=== PATIENT | male | born 1945 | race Caucasian/White ===

== ENCOUNTER 2023-04-10 08:30 | Outpatient (CLI) | payer OTHER | END 2023-04-10 08:31 | disposition critical access hospital (66) | LOC: EMS 08:30 | DX: S81.812A Laceration without foreign body, left lower leg, initial encounter (principal); M25.562 Pain in left knee; W01.0XXA Fall on same level from slipping, tripping and stumbling without subsequent striking against object, initial encounter; Y93.01 Activity, walking, marching and hiking ==

== ENCOUNTER 2023-04-10 09:12 | Emergency (ER) | payer SELFPAY ==
--- NOTE | 2023-04-10 10:54 | XRAY Report ---
PROCEDURE: Knee 4 View LT INDICATIONS: fall laterl pain TECHNIQUE: 4 views of the left knee(s) were acquired. COMPARISON: None. FINDINGS: Bones: There is a mildly displaced oblique fracture of the proximal tibia extending to the lateral ti bial plateau. Soft tissues: No knee joint effusion. No suspicious soft tissue calcifications or masses. IMPRESSION: Proximal tibial fracture. Reviewed by: Mauricio Haynes MD on 04/10/2023 10:52 AM PDT Approved by: Mauricio Haynes MD on 04/10/2023 10:52 AM PDT Station ID: [id number]
--- NOTE | 2023-04-10 10:54 | XRAY Report ---
PROCEDURE: Tib/Fib LT INDICATIONS: fall proximal pain distal swelling TECHNIQUE: 2 views of the tibia and fibula were acquired. COMPARISON: None. FINDINGS: Bones: Mildly displaced fracture of the proximal tibia extending to the lateral tibial plateau is pr esent. No suspicious bony lesions. Soft tissues: No suspicious soft tissue calcifications or masses. IMPRESSION: Proximal tibial fracture. Reviewed by: Mauricio Haynes MD on 04/10/2023 10:53 AM PDT Approved by: Muaricio Haynes MD on 04/10/2023 10:53 AM PDT Station ID: [id number]
--- NOTE | 2023-04-10 11:58 | ED Physician Documentation ---
PD HPI LOWER EXT INJURY - Stated complaint Stated Complaint: LEG PX/FALL - Chief complaint Chief Complaint: Ext Problem - History obtained from History obtained from: Patient - History of Present Illness PD HPI LOW EXT INJURY LOCATION: Left, Knee, Lower leg Type of injury: Fall Where injury occurred: [place] Timing - onset: How many days ago (2) Timing - duration: Days (2) Timing - details: Abrupt onset, Still present Improved by: Rest, Immobilization Worsened by: Moving, Palpating Associated symptoms: No: Weakness, Numbness, Tingling, Swelling Contributing factors: No: Anticoagulated Similar symptoms before: Has not had sx before Recently seen: Not recently seen - Additional information Additional information: Previously well Jann Finney is a 77-year-old male who takes tamsulosin. 2 [place] felt forward and landed hard on his left foot. He struck his face may have had a momentary loss of consciousness. He states that he felt the jarring motion of the fall with significant but he did not feel that he was otherwise injured. He has a black and blue eye and denies any injury to his chest abdomen pelvis or extremities with the exception of the left lower extremity. He denies any nausea or vomiting denies difficulty concentrating or lightheadedness and dizziness.The patient states that when this fall occurred 2 days ago he was [place] the [place] and a passerby stayed with him for about half an hour until he was able to get into his car to drive home. He states that when he got to his home he had to crawl back into his house. He has been using a wheelchair in his home for ambulation and he has a friend who is a next-door neighbor who is assisting him. Review of Systems Constitutional: denies: Fever Eyes: denies: Loss of vision, Decreased vision, Photophobia, Discharge, Irritation Ears: denies: Ear pain Nose: denies: Rhinorrhea / runny nose, Congestion Throat: denies: Sore throat Cardiac: denies: Chest pain / pressure, Palpitations Respiratory: denies: Dyspnea, Cough GI: denies: Abdominal Pain, Nausea, Vomiting, Constipation, Diarrhea : denies: Dysuria, Frequency Skin: denies: Rash Musculoskeletal: reports: Extremity pain, Pain with weight bearing. denies: Neck pain, Back pain, Extremity swelling, Joint swelling Neurologic: denies: Generalized weakness, Focal weakness, Numbness PD PAST MEDICAL HISTORY - Past Medical History Past Medical History: Yes : Benign prostate hypertrophy - Past Surgical History Past Surgical History: No - Present Medications Home Medications: Ambulatory Orders Medication Instructions Recorded Confirmed Tamsulosin [Flomax] 0.4 mg PO DAILY 04/10/23 04/10/23 - Allergies Allergies/Adverse Reactions: Allergies Allergy/AdvReac Type Severity Reaction Status Date / Time No Known Drug Allergies Allergy Verified 04/10/23 09:22 - Social History Does the pt smoke?: No Smoking Status: Never smoker PD ED PE NORMAL - Vitals Vital signs reviewed: Yes (hypertensive ) - General General: Alert and oriented X 3, No acute distress, Well developed/nourished - HEENT HEENT: PERRL, EOMI, Other (Ecchymosis to the left periorbital tissues without evidence of tenderness swelling or entrapment. No injury to the globe. Symmetric pupils. No pain to deep palpation of the scalp face and neck) - Neck Neck: Supple, no meningeal sign, No bony TTP - Cardiac Cardiac: RRR, No murmur - Respiratory Respiratory: No respiratory distress, Clear bilaterally - Abdomen Abdomen: Soft, Non tender - Back Back: No CVA TTP, No spinal TTP - Derm Derm: Normal color, Warm and dry, No rash - Extremities Extremities: No deformity, No edema, Other (Point tenderness to the posterior left calf at the knee. Tenderness associated with valgus forces applied. Tenderness is to the medial aspect of the knee over the tibia. 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, No motor deficit, No sensory deficit, Normal speech Eye Opening: Spontaneous Motor: Obeys Commands Verbal: Oriented GCS Score: 15 - Psych Psych: Normal mood, Normal affect Results - Vitals Vitals: Vital Signs - 24 hr 04/10/23 04/10/23 09:19 13:59 Temperature 37.1 C Heart Rate 87 67 Respiratory 20 16 Rate Blood Pressure 141/88 H 105/73 O2 Saturation 98 100 Oxygen O2 Source Room air - Rads (name of study) L LE Relevant Findings:: Prelim report reviewed (Impression: Proximal tibial fracture.), EMP independent interpretation of test Left knee Relevant Findings:: Prelim report reviewed (Impression: Proximal tibial fracture.), EMP independent interpretation of test CT left knee Relevant Findings:: Prelim report reviewed, EMP independent interpretation of test (On my interpretation of this study there is minimal displacement.) PD Medical Decision Making - ED course Complexity details: reviewed results, re-evaluated patient, considered differential, d/w patient ED course: 77-year-old male presented to the emergency department with a fall 2 days ago and inability to bear weight secondary to pain in his leg. He is found to have a tibial plateau fracture on plain film and a CT scan is obtained to further rule elucidate the fracture. This fracture appears minimally displaced. The patient is placed into a knee immobilizer and onto crutches and instructed to follow-up with orthopedics this week. I did further evaluate the patient regarding this fall and found no other areas of significant injury. He did have some ecchymosis to his eye lid but no injury to the globe and no injury to the periorbital tissues. Deep palpation of the chest abdomen back and extremities with the exception of the left lower extremity are all without specific tende rness Departure - Departure Disposition: 01 Home, Self Care Clinical Impression: Tibial plateau fracture, left Qualifiers: Encounter type: initial encounter Fracture type: closed Qualified Code(s): S82.142A - Displaced bicondylar fracture of left tibia, initial encounter for closed fracture Condition: Stable Instructions: ED Immobilizer Knee, ED Fx Knee Follow-Up: Junior Sy MD [Provider Admit Priv/Credential] - Comments: Jann today it looks like you have a tibial plateau fracture. This is something that may require a surgical fixation. The recommendation is to be nonweightbearing in this knee immobilizer and on crutches until your follow-up with the orthopedic doctor. Call Dr. Meredith's office on Tuesday for appointment as soon as possible. Discharge Date/Time: 04/10/23 14:00
--- NOTE | 2023-04-10 13:09 | CT Report ---
PROCEDURE: LOWER EXTREMITY WO - LT INDICATIONS: Tibial plateau fracture TECHNIQUE: Noncontrast 3-mm axial sections acquired from the distal tibial shaft to the talar dome, with coronal and sagittal reformats. For radiation dose reduction, the following was used: automated exposure c ontrol, adjustment of mA and/or kV according to patient size. COMPARISON: Plain films dated 04/10/2023 FINDINGS: Image quality: Excellent. Bones: As seen by plain films, there is a minimally displaced oblique fracture of the proximal tibia extending to the lateral tibial plateau. Soft tissues: There is a small knee joint effusion. No focal fluid collection within the calf. Impression: No change in tibial plateau fracture compared to same day plain films. Reviewed by: Mauricio Haynes MD on 04/10/2023 1:08 PM PDT Approved by: Mauricio Haynes MD on 04/10/2023 1:08 PM PDT Station ID: [id number]
[2023-04-10 14:01] VITALS: BP 105/73
== END 2023-04-10 14:00 | disposition home or self-care (01) ==
LOC: EDUNIT# → ED 09:12
DX: S82.142A Displaced bicondylar fracture of left tibia, initial encounter for closed fracture (principal); W01.0XXA Fall on same level from slipping, tripping and stumbling without subsequent striking against object, initial encounter; Y93.01 Activity, walking, marching and hiking; Y92.832 Beach as the place of occurrence of the external cause
CPT/HCPCS: 99283; 99284

== ENCOUNTER 2023-04-21 08:00 | Outpatient (CLI) | payer SELFPAY ==
--- NOTE | 2023-04-21 11:21 | XRAY Report ---
PROCEDURE: Knee 3 View LT INDICATIONS: LEFT TIBIA FRACTURE TECHNIQUE: 3 views of the left knee(s) were acquired. COMPARISON: 04/10/2023 FINDINGS: Bones: Redemonstration of mildly displaced oblique fracture involving the proximal left tibia extend ing into the articular surface of the lateral femorotibial compartment. No significant change in alig nment. Overall stable radiographic appearance. No significant periosteal reaction or early callus for mation noted. Tricompartmental degenerative changes of the left knee redemonstrated. Soft tissues: Small persistent knee joint effusion. No suspicious soft tissue calcifications or mass es. IMPRESSION: Stable appearance and alignment of proximal left tibial fracture with intra-articular extension. Reviewed by: Reed Rey MD on 04/21/2023 11:19 AM PDT Approved by: Reed Rey MD on 04/21/2023 11:19 AM PDT Station ID: [id number]
== END 2023-04-21 23:59 | disposition home or self-care (01) ==
LOC: DI.WOS 08:00
PROVIDERS: ATTEND Orthopaedic Surgery
DX: S82.142A Displaced bicondylar fracture of left tibia, initial encounter for closed fracture (principal)

== ENCOUNTER 2023-05-19 08:00 | Outpatient (CLI) | payer SELFPAY ==
--- NOTE | 2023-05-19 13:07 | XRAY Report ---
PROCEDURE: Knee 3 View LT INDICATIONS: LEFT PROX TIBIA FRACTURE TECHNIQUE: 3 views of the left knee(s) were acquired. COMPARISON: 04/21/2023 FINDINGS: Bones: Nondisplaced oblique sagittal fracture plane through the lateral tibial plateau extending to the medial metaphysis is again seen, but less prominent compared to prior. There is no significant br idging callus seen. Soft tissues: Small knee joint effusion. No suspicious soft tissue calcifications or masses. IMPRESSION: Stable appearance of nondisplaced lateral tibial plateau fracture. Reviewed by: Mireille Pritchett MD on 05/19/2023 1:06 PM PDT Approved by: Mireille Pritchett MD on 05/19/2023 1:06 PM PDT Station ID: [id number]
== END 2023-05-19 23:59 | disposition home or self-care (01) ==
LOC: DI.WOS 08:00
PROVIDERS: ATTEND Orthopaedic Surgery
DX: S82.145D Nondisplaced bicondylar fracture of left tibia, subsequent encounter for closed fracture with routine healing (principal)

== ENCOUNTER 2023-06-30 08:00 | Outpatient (CLI) | payer SELFPAY ==
--- NOTE | 2023-06-30 13:43 | XRAY Report ---
PROCEDURE: Knee 3 View LT INDICATIONS: LEFT PROXIMAL TIBIA FRACTURE TECHNIQUE: 3 views of the left knee were acquired. COMPARISON: Left knee radiographs 04/21/2023 and 05/19/2023. FINDINGS: Bones: Generalized osteopenia. Oblique fracture of the proximal tibia again seen with mild sclerosis along the fracture line compatible with healing changes. Osseous alignment is unchanged. Soft tissues: Trace knee joint effusion. No suspicious soft tissue calcifications or masses. IMPRESSION: Progressive healing changes involving the proximal tibial fracture with unchanged alignment. Reviewed by: Michel Camp MD on 06/30/2023 1:42 PM PDT Approved by: Michel Camp MD on 06/30/2023 1:42 PM PDT Station ID: [id number]
== END 2023-06-30 23:59 | disposition home or self-care (01) ==
LOC: DI.WOS 08:00
PROVIDERS: ATTEND Orthopaedic Surgery
DX: S82.142D Displaced bicondylar fracture of left tibia, subsequent encounter for closed fracture with routine healing (principal)

== ENCOUNTER 2023-09-12 07:44 | Outpatient (CLI) | payer SELFPAY ==
[2023-09-12 14:56] LABS: BASOPHILS # (AUTO) 0.1 10^3/uL (0.0-0.1); BASOPHILS % (AUTO) 1.1 %; EOSINOPHILS # (AUTO) 0.4 10^3/uL (0.0-0.7); HCT - HEMATOCRIT 49.7 % (42.0-52.0); LYMPHOCYTES % (AUTO) 28.3 %; MEAN CORPUSCULAR HEMOGLOBIN 30.8 pg (27.0-31.0); MEAN CORPUSCULAR HGB CONC 32.2 g/dL (32.0-36.0); MEAN CORPUSCULAR VOLUME 95.6 fL (80.0-94.0); MEAN PLATELET VOLUME 11.2 fL (7.4-11.4); MONOCYTES # (AUTO) 0.6 10^3/uL (0.0-1.0); MONOCYTES % (AUTO) 8.7 %; NEUTROPHILS # (AUTO) 3.9 10^3/uL (1.5-6.6); NEUTROPHILS % (AUTO) 55.5 %; PLT - PLATELET COUNT 244 10^3/uL (130-450)
[2023-09-12 16:51] LABS: CHOL/HDL RATIO 2.2 (<5.0); CHOLESTEROL 169 mg/dL; HDL CHOLESTEROL 77 mg/dL; LDL CHOLESTEROL,CALCULATED 74 mg/dL; TRIGLYCERIDES 89 mg/dL (48-352); VLDL CHOLESTEROL 18 mg/dL
== END 2023-09-12 07:45 | disposition home or self-care (01) ==
LOC: LAB.S 07:44
PROVIDERS: ATTEND Registered Nurse
DX: N40.0 Benign prostatic hyperplasia without lower urinary tract symptoms (principal); F32.9 Major depressive disorder, single episode, unspecified; Z13.220 Encounter for screening for lipoid disorders; Z79.899 Other long term (current) drug therapy
CPT/HCPCS: 36415; 80061; 83721; 84403; 85025